=== PATIENT | male | born 1970 | race Caucasian/White ===

== ENCOUNTER 2023-01-15 11:49 | Day surgery (SDC) | payer BC ==
[2023-01-10 12:40] LABS: BASOPHILS # (AUTO) 0.1 X10'3 (0-0.2); BASOPHILS % (AUTO) 1.2 % (0-1); EOSINOPHILS # (AUTO) 0.1 X10'3 (0-0.9); EOSINOPHILS % (AUTO) 1.5 % (0-6); HEMATOCRIT 43.4 % (42.0-52.0); HEMOGLOBIN 14.9 g/dl (14.0-17.9); LYMPHOCYTES # (AUTO) 0.7 X10'3 (1.1-4.8); LYMPHOCYTES % (AUTO) 13.7 % (21-51); MEAN CORPUSCULAR HEMOGLOBIN 31.7 PG (27.0-31.0); MEAN CORPUSCULAR HGB CONC 34.4 g/dL (33.0-36.5); MEAN CORPUSCULAR VOLUME 92.2 FL (78-98); MEAN PLATELET VOLUME 8.5 FL (7.4-10.4); MONOCYTES # (AUTO) 0.4 X10'3 (0-0.9); MONOCYTES % (AUTO) 8.6 % (2-12); NEUTROPHILS # (AUTO) 3.7 X10'3 (1.8-7.7); PLATELET COUNT 151 X10'3 (140-440); RED CELL DISTRIBUTION WIDTH 13.2 % (11.5-14.5)
[2023-01-10 12:52] LABS: APTT 28 SECONDS (22-32)
[2023-01-10 12:53] LABS: ALBUMIN 3.8 G/DL (3.4-5.0); ANION GAP 4 (8-16); BLOOD UREA NITROGEN 20 MG/DL (7-18); BUN/CREATININE RATIO 14.9 (10.0-20.0); CALCIUM 8.5 MG/DL (8.5-10.1); CHLORIDE 107 MMOL/L (99-107); CHOL/HDL RATIO 2.4 (0.00-4.99); CHOLESTEROL 165 MG/DL (0-200); CREATININE 1.34 MG/DL (0.60-1.10); GLUCOSE 94 MG/DL (70-104); HDL CHOLESTEROL 68 MG/DL (35-60); LDL CHOLESTEROL 83 MG/DL (50-100); POTASSIUM 4.2 MMOL/L (3.5-5.1); SODIUM 141 MMOL/L (135-145); TOTAL CARBON DIOXIDE 29.6 MMOL/L (24-32); TRIGLYCERIDES 42 MG/DL (20-135); eGFR 56 ML/MIN
[~2023-01-15] VITALS: Ht 172.7 cm; Wt 79.0 kg
[2023-01-15] MEDS ORDERED: LIDOcaine 1% (10mg/ml) 2ml vial ONE (11:55)
[2023-01-15] MEDS ORDERED: midazolam 1 mg/ML 2ml injection ONE ×2 (11:55→13:45)
[2023-01-15] MEDS ORDERED: heparin 1,000unit/ml 10ml vial 10 ML ONE (11:55)
[2023-01-15] MEDS ORDERED: nitroGLYCERIN-Tridil 50MG/D5W 250 ML IV ONE (11:55)
[2023-01-15] MEDS ORDERED: verapamil 2.5 mg/ml inj IV ONE (11:55)
[2023-01-15] MEDS ORDERED: fentaNYL/PF 50MCG/1 ML 2ML syringe ONE (11:56)
[2023-01-15] MEDS ORDERED: iohexol 350MG/ML 100ml bottle IV ONE (11:56)
[2023-01-15 12:03] VITALS: BP 161/59
[2023-01-15] MEDS ORDERED: LISI40TA13 PO (12:08)
[2023-01-15] MEDS ORDERED: normal saline 1,000 ML IV SCH (12:10)
[2023-01-15] MEDS ORDERED: LORazepam 0.5 MG tablet PO PRN (12:10)
[2023-01-15] MEDS ORDERED: diphenhydrAMINE 25mg capsule PO PRN (12:10)
[2023-01-15] MEDS ORDERED: iohexol 350 MG/ML 50ML vial IV ONE ×2 (13:35→13:47)
[2023-01-15 13:57] LABS: ISTAT HGB ART 12.6 g/dl (14.0-17.9); ISTAT Hct ART 37 %PCV (42-52); ISTAT O2 SATURATION ARTERIAL 94 % (95-98); ISTAT SOURCE ART
[2023-01-15 14:12] VITALS: BP 151/52
[2023-01-15] MEDS ORDERED: HYDROcodone/acetaminophen 5mg/325mg tablet PO PRN (14:25)
[2023-01-15] MEDS ORDERED: HYDROcodone/acetaminophen 10/325mg tab PO PRN (14:25)
[2023-01-15 14:30] VITALS: BP 167/62
[2023-01-15 14:45] VITALS: BP 168/70
[2023-01-15 15:00] VITALS: BP 156/69
[2023-01-15 15:15] VITALS: BP 158/58
== END 2023-01-15 16:05 | disposition home or self-care (01) ==
LOC: SSTAY O 11:49
PROVIDERS: ATTEND Student in an Organized Health Care Education/Training Program
DX: I35.1 Nonrheumatic aortic (valve) insufficiency (principal); I10 Essential (primary) hypertension; E78.5 Hyperlipidemia, unspecified; I77.811 Abdominal aortic ectasia; Z86.79 Personal history of other diseases of the circulatory system; Z79.899 Other long term (current) drug therapy; Z79.01 Long term (current) use of anticoagulants
CPT/HCPCS: 36415; 80048; 80061; 82803; 85014; 85025; 85610; 85730; 93005; 93460; 93567; 99152; 99153; J1644; J2250; J3010; J3490; J7030; Q9967; A6258; A6402; C1751; C1894

== ENCOUNTER 2023-05-27 12:53 | Outpatient (CLI) | payer BC ==
[~2023-05-27 12:53] MED LIST: LISI40TA13 PO
[2023-05-27] MEDS ORDERED: iohexol 350MG/ML 100ml bottle IV ONE (13:42)
== END 2023-05-27 23:59 | disposition home or self-care (01) ==
LOC: RAD 12:53
PROVIDERS: ATTEND Thoracic Surgery (Cardiothoracic Vascular Surgery)
DX: I08.8 Other rheumatic multiple valve diseases (principal); I67.1 Cerebral aneurysm, nonruptured; Z98.890 Other specified postprocedural states
CPT/HCPCS: 70496; 93306; J3490; Q9967